=== PATIENT | female | born 2000 | race Two or more races ===

== ENCOUNTER 2024-02-19 14:40 | Outpatient (CLI) | payer OTHER | END 2024-02-19 14:48 | disposition home or self-care (01) | LOC: SONOGRAMA 14:40 | DX: N93.9 Abnormal uterine and vaginal bleeding, unspecified (principal) ==

== ENCOUNTER 2024-10-02 09:45 | Outpatient (CLI) | payer OTHER | END 2024-10-02 10:00 | disposition home or self-care (01) | LOC: PPH VACUNA 09:45 | PROVIDERS: ATTEND Emergency Medicine Pediatric Emergency Medicine | DX: Z23 Encounter for immunization (principal) ==

== ENCOUNTER 2025-09-30 10:23 | Outpatient (CLI) | payer OTHER | END 2025-09-30 10:32 | disposition home or self-care (01) | LOC: SONOGRAMA 10:23 | DX: N93.9 Abnormal uterine and vaginal bleeding, unspecified (principal) ==